=== PATIENT | male | born 1965 | race African-American/Black ===

== ENCOUNTER 2023-07-25 12:20 | Emergency (ER) | payer MEDICAID, OTHER ==
[~2023-07-25] VITALS: Ht 167.6 cm; Wt 97.7 kg
[2023-07-25] MEDS ORDERED: HYDROcodone-ACET 5/325MG TAB PO ONE (13:45)
[2023-07-25 13:52] VITALS: TEMP 97.7
[2023-07-25 14:08] VITALS: BP 168/94; PULSE 98; RESP 20; O2SAT 100
== END 2023-07-25 15:24 | disposition home or self-care (01) ==
LOC: EDBD 12:20 → ER 12:20
DX: S39.012A Strain of muscle, fascia and tendon of lower back, initial encounter (principal); S16.1XXA Strain of muscle, fascia and tendon at neck level, initial encounter; I12.0 Hypertensive chronic kidney disease with stage 5 chronic kidney disease or end stage renal disease; N18.6 End stage renal disease; F17.210 Nicotine dependence, cigarettes, uncomplicated; F15.90 Other stimulant use, unspecified, uncomplicated; Z98.890 Other specified postprocedural states; V43.52XA Car driver injured in collision with other type car in traffic accident, initial encounter; Y93.I9 Activity, other involving external motion; Y92.411 Interstate highway as the place of occurrence of the external cause; Y99.8 Other external cause status
CPT/HCPCS: 72100; 73030